=== PATIENT | male | born 1990 | race Caucasian/White ===

== ENCOUNTER 2018-08-11 18:27 | Emergency (ER) | payer BC, OTHER ==
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
[2018-08-11 19:10] LABS: CHLORIDE,CL 102 mmol/L (98-107); SODIUM,NA 137 mmol/L (136-148)
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
== END 2018-08-11 20:05 | disposition home or self-care (01) ==
LOC: MW.ED 18:27
DX: S40.011A Contusion of right shoulder, initial encounter (principal); M62.838 Other muscle spasm; M54.2 Cervicalgia; Z88.0 Allergy status to penicillin
CPT/HCPCS: 36415; 70450; 70450-26; 71045; 71045-26; 72125; 72125-26; 72170; 72170-26; 73030-26-RT; 73030-RT; 80053; 85025; 99284; 99284-25